=== PATIENT | female | born 1955 | race Caucasian/White ===

== ENCOUNTER → 2016-11-18 | Outpatient (CLI) | payer OTHER ==
[~2016-11-18] MED LIST: AMOXICILLIN500 MG PO; DIFLUCAN150 MG PO; MEDROL DOSEPAK4 MG PO; REQUIP2 M2 PO
== END | disposition home or self-care (01) ==
LOC: MAMMO 15:45
DX: Z12.31 Encounter for screening mammogram for malignant neoplasm of breast (principal)

== ENCOUNTER → 2017-05-18 | Outpatient (CLI) | payer OTHER | END | disposition home or self-care (01) | LOC: RAD 15:59 | DX: J40 Bronchitis, not specified as acute or chronic (principal) ==

== ENCOUNTER → 2019-04-21 | Outpatient (CLI) | payer MEDICARE ==
[2019-04-21 14:18] LABS: BILIRUBIN NEGATIVE (NEGATIVE); BLOOD 2+ (NEGATIVE); CLARITY SL CLOUDY (CLEAR); COLOR YELLOW (YELLOW); GLUCOSE NEGATIVE (NEGATIVE); KETONE NEGATIVE (NEGATIVE); LEUKO ESTERASE 2+ (NEGATIVE); NITRITE NEGATIVE (NEGATIVE); PH 6.5 (5.0-9.0); SPECIFIC GRAVITY <= 1.005 (1.005-1.030); UROBILINOGEN 0.2 E.U./dl (0.2-1.0)
[2019-04-21 14:26] LABS: RBC 0-2 rbc/hpf (0-2)
[2019-04-21 14:27] LABS: BACTERIA 2+; MUCOUS 1+; WBC 16-20 wbc/hpf (0-5)
== END | disposition home or self-care (01) ==
LOC: LAB 13:30
PROVIDERS: Family Medicine
DX: N30.00 Acute cystitis without hematuria (principal)

== ENCOUNTER 2019-08-02 09:43 | Emergency (ER) | payer MEDICARE ==
[~2019-08-02] VITALS: Ht 154.9 cm; Wt 72.6 kg
[2019-08-02 09:45] VITALS: BP 152/87
[2019-08-02] MEDS ORDERED: NORCO 5-325 TA1 EACH PO (10:07)
== END 2019-08-02 10:13 | disposition home or self-care (01) ==
LOC: ED 09:43
DX: T22.211A Burn of second degree of right forearm, initial encounter (principal); T25.122A Burn of first degree of left foot, initial encounter; T31.0 Burns involving less than 10% of body surface; Z88.6 Allergy status to analgesic agent; Z88.1 Allergy status to other antibiotic agents; Z88.2 Allergy status to sulfonamides; X12.XXXA Contact with other hot fluids, initial encounter; Y93.89 Activity, other specified; Y92.89 Other specified places as the place of occurrence of the external cause; Y99.8 Other external cause status

== ENCOUNTER → 2020-03-14 | Outpatient (CLI) | payer MEDICARE ==
[~2020-03-14] MED LIST changes: +NORCO 5-325 TA1 EACH PO
== END | disposition home or self-care (01) ==
LOC: COVID19 00:36
DX: Z03.818 Encounter for observation for suspected exposure to other biological agents ruled out (principal)

== ENCOUNTER → 2020-11-14 | Outpatient (CLI) | payer MEDICARE ==
[2020-11-14 08:41] LABS: BASO % 0.8 % (0.0-1.0); EOS # 0.3 10*3/uL (0.0-0.4); EOS % 6.5 % (1.0-4.0); HEMATOCRIT 42.3 % (37.0-47.0); LYMPH % 39.7 % (27.0-41.0); MEAN CELL VOLUME 91.8 fl (81.0-99.0); MEAN CORPUSCULAR HGB 30.2 pg (27.0-31.0); MEAN CORPUSCULAR HGB CONC 32.9 g/dl (33.0-37.0); MEAN PLATELET VOLUME 10.3 fl (9.6-12.3); MONO # 0.4 10*3/uL (0.1-1.0); MONO % 7.5 % (3.0-9.0); NEUT # 2.3 10*3/uL (2.3-7.9); NEUT % 45.3 % (47.0-73.0); PLATELET COUNT AUTOMATED 237 10*3/uL (130-400); RED BLOOD COUNT 4.61 10*6/uL (4.10-5.10); RED CELL DISTRI WIDTH 13.2 % (0-14.5)
[2020-11-14 09:10] LABS: ALBUMIN 3.7 gm/dl (3.1-4.5); ALKALINE PHOSPHATASE 93 U/L (45-117); BUN 23 mg/dl (7-24); CHLORIDE 108 mmol/L (98-107); CHOLESTEROL 222 mg/dL (<200); CREATININE 0.74 mg/dL (0.55-1.02); HDL CHOLESTEROL 55 mg/dl (40-60); LDL CHOLESTEROL 144 mg/dL (9-159); POTASSIUM 3.8 mmol/L (3.5-5.1); SGOT/AST 13 IU/L (3-35); SGPT/ALT 31 U/L (12-78); SODIUM 139 mmol/L (136-145); TOTAL PROTEIN 7.4 gm/dL (6.4-8.2); TRIGLYCERIDES 117 mg/dl (<150); VLDL CHOLESTEROL 23 mg/dL (6-40)
== END | disposition home or self-care (01) ==
LOC: LAB 00:35 → RAD 09:00 → MAMMO 09:30
PROVIDERS: ATTEND Family Medicine
DX: Z12.31 Encounter for screening mammogram for malignant neoplasm of breast (principal); N64.89 Other specified disorders of breast; M85.852 Other specified disorders of bone density and structure, left thigh; G60.9 Hereditary and idiopathic neuropathy, unspecified; G61.82 Multifocal motor neuropathy; Z78.0 Asymptomatic menopausal state; Z79.899 Other long term (current) drug therapy

== ENCOUNTER 2021-02-24 10:58 | Emergency (ER) | payer MEDICARE ==
[~2021-02-24] VITALS: Ht 154.9 cm; Wt 68.5 kg
[2021-02-24 11:30] VITALS: BP 111/81
== END 2021-02-24 12:09 | disposition home or self-care (01) ==
LOC: ED 10:58
DX: S51.812A Laceration without foreign body of left forearm, initial encounter (principal); Z88.6 Allergy status to analgesic agent; Z88.1 Allergy status to other antibiotic agents; Z88.2 Allergy status to sulfonamides; Z79.899 Other long term (current) drug therapy; Z90.711 Acquired absence of uterus with remaining cervical stump; Z88.8 Allergy status to other drugs, medicaments and biological substances; W18.09XA Striking against other object with subsequent fall, initial encounter; Y93.89 Activity, other specified; Y92.89 Other specified places as the place of occurrence of the external cause; Y99.8 Other external cause status

== ENCOUNTER → 2021-11-10 | Outpatient (CLI) | payer MEDICARE | END | disposition home or self-care (01) | LOC: RAD 11:27 | PROVIDERS: ATTEND Family Medicine | DX: M51.37 Other intervertebral disc degeneration, lumbosacral region (principal); M79.604 Pain in right leg; M79.605 Pain in left leg; R20.2 Paresthesia of skin ==

== ENCOUNTER 2023-10-06 10:07 | Emergency (ER) | payer MEDICARE ==
[~2023-10-06] VITALS: Ht 154.9 cm; Wt 74.8 kg
[2023-10-06 11:10] VITALS: BP 140/82
== END 2023-10-06 13:10 | disposition home or self-care (01) ==
LOC: ED 10:07
DX: S43.401A Unspecified sprain of right shoulder joint, initial encounter (principal); Z88.6 Allergy status to analgesic agent; Z88.1 Allergy status to other antibiotic agents; Z88.2 Allergy status to sulfonamides; Z88.8 Allergy status to other drugs, medicaments and biological substances; Z90.710 Acquired absence of both cervix and uterus; W18.40XA Slipping, tripping and stumbling without falling, unspecified, initial encounter; Y93.89 Activity, other specified; Y92.89 Other specified places as the place of occurrence of the external cause; Y99.8 Other external cause status

== ENCOUNTER → 2023-12-23 | Outpatient (CLI) | payer MEDICARE ==
[~2023-12-23] MED LIST changes: +[UNRECOGNIZED DRUG - OTHER] SCH
== END | disposition home or self-care (01) ==
LOC: NM 00:56
PROVIDERS: ATTEND Internal Medicine
DX: E05.90 Thyrotoxicosis, unspecified without thyrotoxic crisis or storm (principal)

== ENCOUNTER → 2024-02-03 | Outpatient (CLI) | payer MEDICARE ==
[~2024-02-03] MED LIST changes: -[UNRECOGNIZED DRUG - OTHER] SCH
== END | disposition home or self-care (01) ==
LOC: MAMMO 00:17
PROVIDERS: ATTEND Internal Medicine
DX: Z12.31 Encounter for screening mammogram for malignant neoplasm of breast (principal); R92.323 Mammographic fibroglandular density, bilateral breasts